=== PATIENT | female | born 1975 | race Asian ===

== ENCOUNTER 2018-03-08 02:21 | Emergency (ER) | payer BC ==
[~2018-03-08] VITALS: Ht 165.1 cm; Wt 56.7 kg
[2018-03-08 02:24] VITALS: Ht 165.1 cm; Wt 56.7 kg
[2018-03-08 03:32] LABS: BASOPHIL % 0.2 % (0-2); PLATELET COUNT 217 x10^3mcL (130-400); RED CELL DISTRIBUTION WIDTH 14.3 % (11.5-14.5)
[2018-03-08 03:37] LABS: UA SPECIFIC GRAVITY 1.015 (1.005-1.035); microscopic required? YES; urine erythrocyte TRACE (NEGATIVE)
[2018-03-08 03:54] LABS: CALCIUM 8.5 mg/dL (8.5-10.1); CARBON DIOXIDE 27.4 mmol/L (21-32); CHLORIDE SERUM 107 mmol/L (98-107); CREATININE SERUM 0.8 mg/dL (0.6-1.0); GFR1 > 60 mL/min; GLUCOSE SERUM 152 mg/dL (74-106); POTASSIUM SERUM 3.6 mmol/L (3.5-5.1); SODIUM SERUM 142 mmol/L (136-145)
[2018-03-08 03:58] LABS: AMPHETAMINE QUAL UR NONE DETECTED (See below)
[2018-03-08 03:58] LABS: ALKALINE PHOSPHATASE 54 U/L (46-116); ALT/SGPT 26 U/L (14-59); AST/SGOT 27 U/L (15-37); FREE T4 0.99 ng/dL (0.76-1.46); LIPASE 241 IU/L (73-393)
[2018-03-08 03:59] LABS: TOTAL PROTEIN, SERUM 8.5 g/dL (6.4-8.2)
[2018-03-08 07:47] VITALS: BP 156/101
== END 2018-03-08 07:48 | disposition home or self-care (01) ==
LOC: ED 02:21
PROVIDERS: Emergency Medicine
DX: I16.0 Hypertensive urgency (principal); R00.2 Palpitations; Z98.890 Other specified postprocedural states
CPT/HCPCS: 36415; 83880; 84439; G0480